=== PATIENT | male | born 1990 | race Caucasian/White ===

== ENCOUNTER 2016-10-18 11:17 | Inpatient (IN) | payer BC, OTHER ==
[2016-10-18 12:47] LABS: Hematocrit 48 % (42-52); Hemoglobin 16.3 g/dl (14.0-18.0); Mean Corpuscular HGB Conc 34 g/dl (31-36); Mean Corpuscular Hemoglobin 30 pg (27-31); Mean Corpuscular Volume 89 fL (80-94); Mean Platelet Volume 8 um3 (7.4-10.4); Red Blood Count 5.39 10^6/ul (4.0-5.4); Red Cell Distribution Width 12 % (10.5-15); White Blood Count 7.6 10^3/ul (3.5-10.8)
[2016-10-18 13:01] LABS: ALT 25 U/L (7-52); AST 19 U/L (13-39); Albumin 4.7 g/dL (3.2-5.2); Alkaline Phosphatase 92 U/L (34-104); Anion Gap 6 mmol/L (2-11); BUN/Creatinine Ratio 17.9 (8-20); Blood Urea Nitrogen 15 mg/dL (6-24); CO2 Carbon Dioxide 29 mmol/L (22-32); Calcium 9.5 mg/dL (8.6-10.3); Chloride 104 mmol/L (101-111); EGFR African American 143.2 (>60); EGFR Non-African American 111.3 (>60); Globulin 2.7 g/dL (2-4); Glucose 92 mg/dL (70-100); Potassium 3.7 mmol/L (3.5-5.0); Sodium 139 mmol/L (133-145); Total Protein 7.4 g/dL (6.4-8.9)
[2016-10-18 13:12] LABS: Acetaminophen < 15 mcg/mL; Alcohol < 10 mg/dL (<10); Salicylate < 2.50 mg/dL (<30)
[2016-10-18 13:23] LABS: TSH (Thyroid Stimulating Horm) 1.02 mcIU/mL (0.34-5.60)
[2016-10-18 13:43] LABS: Urine Bacteria Absent (Absent); Urine Bilirubin Negative (Negative); Urine Glucose Negative (Negative); Urine Nitrite Negative (Negative)
[2016-10-18] MEDS ORDERED: Haloperidol TAB* 5 MG PO PRN (15:44)
[2016-10-18] MEDS ORDERED: Magnesium Hydroxide LIQ* 30 ML UDC PO PRN (15:46)
--- NOTE | 2016-10-18 16:58 | ED ---
Fish Ruggiero Auryana, scribed for Jamin Guzmán MD on 10/18/16 at 1310 . Psychiatric Complaint - HPI Summary HPI Summary: 26 year old male presents with increased depression. Per guardians - about 1 week ago increased symptoms due to gradual reduction of medication - adverse side effects: weight gain but had been doing well on medication. He states that he has suicidal ideation- mentions taking pain killers as a plan and has now stopped eating since ceasing medication. He also states that he is hearing voices - telling him to hurt himself - intermittent for the last year - worse recently. He denies any lacerations. He denies alcohol, recreational drug use, and tobacco use - former smoker. PMHx is psychiatric issues - June 2015 hospitalization. - History Of Current Complaint Chief Complaint: [facility]entalHealth Time Seen by Provider: 10/18/16 12:50 Accompanied By: Guardians Hx Obtained From: Patient, Family/Soil Biology Teacher Onset/Duration: Gradual Onset, Lasting Weeks - 1, Still Present Timing: Constant Severity Initially: Moderate Severity Currently: Moderate Character: Depressed Aggravating Factor(s): Medication Non-compliance - recently stopped taking medication because of adverse sajan effects Associated Signs And Symptoms: Positive: Appetite Change - decreased appetite Related History: Positive For: Prior Psychiatric Issues Has Suicidal: Reports: Thoughts, With A Plan - Allergies/Home Medications Allergies/Adverse Reactions: Allergies Allergy/AdvReac Type Severity Reaction Status Date / Time No Known Allergies Allergy Verified 06/19/15 18:40 PMH/Surg Hx/FS Hx/Imm Hx Endocrine/Hematology History: Denies: Hx Diabetes Cardiovascular History: Denies: Hx Hypertension, Hx Pacemaker/ICD Sensory History: Denies: Hx Hearing Aid Psychiatric History: Reports: Hx Panic Disorder - ANXIETY, Hx Inpatient Treatment - June 2015 Denies: Hx of Violent Episodes Against Others - Surgical History Surgery Procedure, Year, and Place: RT WRIST SURGERY 2004 Infectious Disease History: No Infectious Disease History: Denies: Traveled Outside the [place] in Last 30 Days - Social History Occupation: Unemployed Lives: With Family Alcohol Use: None Alcohol Amount: "7-9 beers" but unable to specify Substance Use Type: Reports: None Substance Use Comment - Amount & Last Used: UNKNOWN Smoking Status (MU): Light Every Day Tobacco Smoker Type: Cigarettes Review of Systems Constitutional: Negative Eyes: Negative ENT: Negative Cardiovascular: Negative Respiratory: Negative Gastrointestinal: Negative Genitourinary: Negative Musculoskeletal: Negative Skin: Negative Neurological: Negative Positive: Depressed, Other - hearing voices, SI, and anorexia All Other Systems Reviewed And Are Negative: Yes Physical Exam - Summary Physical Exam Summary: The patient is well-nourished in no acute distress and in no acute pain. The skin is warm and dry and skin color reflects adequate perfusion. No lacerations on extremities. HEENT: The head is normocephalic and atraumatic. The pupils are equal and reactive. The conjunctivae are clear and without drainage. Nares are patent and without drainage. Mouth reveals moist mucous membranes and the throat is without erythema and exudate. The external ears are intact. Neck is supple with full range of motion and non-tender. There are no carotid bruits. There is no neck vein distension. Respiratory: Chest is non-tender. Lungs are clear to auscultation and breath sounds are symmetrical and equal. Cardiovascular: Hear is regular rate and rhythm. There is no murmur or rub auscultated. There is no peripheral edema and pulses are symmetrical and equal. Abdomen: The abdomen is soft and non-tender. There are normal bowel sounds heard in all four quadrants and there is no organomegaly palpated. Musculoskeletal: There is no back pain noted. Extremities are non-tender with full range of motion. There is good capillary refill. There is no peripheral edema or calf tenderness elicited. Neurological: Patient is alert and oriented to person, place and time. The patient has symmetrical motor strength in all four extremities. Cranial nerves are grossly intact. Deep tendon reflexes are symmetrical and equal in all four extremities. Psychiatric: The patient has flat affect and poor hygiene. Triage Information Reviewed: Yes Vital Signs On Initial Exam: Initial Vitals Temp Pulse Resp BP Pulse Ox 98.6 F 66 20 135/82 99 10/18/16 11:22 10/18/16 11:22 10/18/16 11:22 10/18/16 11:22 10/18/16 11:22 Vital Signs Reviewed: Yes - Yahaira Coma Scale Coma Scale Total: 15 Diagnostics - Vital Signs Vital Signs Temp Pulse Resp BP Pulse Ox 10/18/16 11:23 98.7 F 91 20 135/82 96 10/18/16 11:22 98.6 F 66 20 135/82 99 - Laboratory Lab Results: Lab Results 10/18/16 Range/Units 12:20 WBC 7.6 (3.5-10.8) 10^3/ul RBC 5.39 (4.0-5.4) 10^6/ul Hgb 16.3 (14.0-18.0) g/dl Hct 48 (42-52) % MCV 89 (80-94) fL MCH 30 (27-31) pg MCHC 34 (31-36) g/dl RDW 12 (10.5-15) % Plt Count 297 (150-450) 10^3/ul MPV 8 (7.4-10.4) um3 Neut % (Auto) 57.5 (38-83) % Lymph % (Auto) 32.4 (25-47) % [place] % (Auto) 8.3 (1-9) % Eos % (Auto) 1.4 (0-6) % Baso % (Auto) 0.4 (0-2) % Absolute Neuts (auto) 4.4 (1.5-7.7) 10^3/ul Absolute Lymphs (auto) 2.5 (1.0-4.8) 10^3/ul Absolute Monos (auto) 0.6 (0-0.8) 10^3/ul Absolute Eos (auto) 0.1 (0-0.6) 10^3/ul Absolute Basos (auto) 0 (0-0.2) 10^3/ul Absolute Nucleated RBC 0.01 10^3/ul Nucleated RBC % 0.1 Result Diagrams: 10/18/16 12:20 10/18/16 12:20 Lab Statement: Any lab studies that have been ordered have been reviewed, and results considered in the medical decision making process. Course/Dx - Course Assessment/Plan: 26 year old male presents with increase depression starting about 1 week ago after gradually ceasing to take his medication. Guardians state that he was experiencing adverse symptoms -weight gain and thus patient wanted to discontinue medication. He is also hearing voices - increased now, and has SI. No tobacco, alcohol, or drug use - former smoker. Prior psychiatric hospitalization in June 2015. Labs ordered - unremarkable. Normal Labs. Normal Urine. Patient is medically clear 13:26. MHE- result: voluntary admission. Diagnosis of schizophrenia. - Differential Dx/Clinical Impression Differential Diagnosis/HQI/PQRI: Positive: Acute Psychosis, Bipolar Disorder, Depression Provider Diagnosis: Schizophrenia, Non compliance with medical treatment Discharge - Discharge Plan Condition: Stable Disposition: PSYCHIATRIC FACILITY-[facility] [place] Referrals: Non Staff,Doctor [Primary Care Provider] - The documentation as recorded by the Fish rendon Auryana accurately reflects the service I personally performed and the decisions made by me, Jamin Guzmán MD.
[2016-10-18] MEDS ORDERED: risperiDONE TAB* 2 MG PO SCH (21:00)
[2016-10-19] MEDS ORDERED: Paliperidone TAB* 6 MG PO ONE (16:11)
[2016-10-19] MEDS: Paliperidone TAB* 6 MG PO SCH (18:09)
[2016-10-19] MEDS: hydrOXYzine HCL TAB* 50 MG PO PRN (22:42)
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
[2016-10-20] MEDS: Paliperidone TAB* 6 MG PO SCH (09:37)
[2016-10-21] MEDS: Paliperidone TAB* 6 MG PO SCH (09:08)
--- NOTE | 2016-10-21 11:02 | PN ---
MHU: Group Therapy Note - Service Type Service Type: [id number] Group Psychotherapy - Cognitive Behavioral Group Therapy ( CBT):Patient was attentive and participatory in CBT programming this morning, and remained in good behavioral control. Patient expressed positive insights regarding relevant treatment interventions and goals.
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
[2016-10-22] MEDS: Paliperidone TAB* 6 MG PO SCH (10:14)
--- NOTE | 2016-10-22 11:24 | PN ---
MHU: Group Therapy Note - Service Type Service Type: [id number] Group Psychotherapy - Cognitive Behavioral Group Therapy ( CBT):Patient attended CBT programming this morning and presented with flat affect that did not vary with discussion. Although responsive to direct prompts to respond to questions, patient did not engage in spontaneous conversation.
[2016-10-22] MEDS ORDERED: Nicotine Inhaler* 10 MG AMP INH PRN (12:22)
[2016-10-22] MEDS ORDERED: Mouth Piece, Nicotine* 1 EACH CARTRIDGE INH ONE (13:00)
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
[2016-10-22] MEDS ORDERED: Paliperidone SUSTENNA* 234 MG/1.5 ML IM ONE (14:52)
[2016-10-23] MEDS: Paliperidone TAB* 6 MG PO SCH (10:09)
--- NOTE | 2016-10-23 11:26 | PN ---
MHU: Group Therapy Note - Service Type Service Type: [id number] Group Psychotherapy - Cognitive Behavioral Group Therapy ( CBT):Patient was attentive and participatory in CBT programming this morning, and remained in good behavioral control. Patient expressed positive insights regarding relevant treatment interventions and goals.
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
[2016-10-23] MEDS: hydrOXYzine HCL TAB* 50 MG PO PRN (20:33)
[2016-10-23] MEDS: Propranolol TAB* 10 MG PO SCH (20:33)
[2016-10-24] MEDS: Acetaminophen TAB* 325 MG PO PRN (06:53)
[2016-10-24] MEDS: Propranolol TAB* 10 MG PO SCH ×2 (09:40→21:33)
[2016-10-24] MEDS: Paliperidone TAB* 6 MG PO SCH (09:40)
--- NOTE | 2016-10-24 11:12 | PN ---
[facility]: Group Therapy Note - Service Type Service Type: 63832 Group Psychotherapy - Cognitive Behavioral Group Therapy ( CBT):Patient attended CBT programming this morning and presented with flat affect that did not vary with discussion. Although responsive to direct prompts to respond to questions, patient did not engage in spontaneous conversation. Isaak's comments in group this morning were disorganized and off topic. When asked by a peer about a cold pack on his wrist he described breaking it in third grade while sliding down a railing.
[2016-10-24] MEDS: hydrOXYzine HCL TAB* 50 MG PO PRN (13:22)
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
[2016-10-25] MEDS: Paliperidone TAB* 6 MG PO SCH (08:38)
[2016-10-25] MEDS: Propranolol TAB* 10 MG PO SCH ×2 (08:38→21:55)
[2016-10-25] MEDS: hydrOXYzine HCL TAB* 50 MG PO PRN (13:07)
--- NOTE | 2016-10-25 15:47 | PN ---
Subjective - Subjective Service Type: 12285 Hosp care 15 min low complexity Subjective: Beto had no spontaneous comments. He noted "pins and needles" sensation all over his body, which Atarax addressed. He denied problems with Invega. He denied current hallucinations, distress, concerns, needs, or conflicts with people. He said he is fine being hospitalized. Objective - Appearance Appearance: Well Developed/Nourished Hygiene: Normal Grooming: Disheveled - Behavior Psychomotor Activities: Abnormal-Decreased - Attitude and Relatedness Attitude and Relatedness: Psychotically Related Eye Contact: Good - Speech Quality: Unpressured Latencies: Long Quantity: Terse - Mood Patient's Decription of Mood: "Okay" - Affect Observed Affect: Unvariable Affect Consistent with: Euthymia - Thought Process Patient's Thought Process: Impoverished Thought Content: No Passive Wish, No Suicidal Planning, No Homicidal Ideation, No Paranoid Ideation - Sensorium Experiencing Hallucinations: No, Sensorium is Clear - Level of Consciousness Level of Consciousness: Alert - Impulse Control Impulse Control: Intact - Insight and Judgement Insight and Judgement: Poor Assessment - Assessment Merits Inpatient Hospitalization: For Stabilization, To Initiate Treatment, For Ongoing Evaluation Inpatient DSM-IV Dx: Schizophrenia Clinical Impression: 26 y/o male with a history of psychosis, Schizophrenia diagnosis, prior psychiatric hospitalization and aggression. He was admitted due to concern over decompensated psychotic symptoms (hallucinations) and agitation, in the setting of months of medication nonadherence. Stable behaviorally here. Safe on checks, adherent with routines. Appears to have negative symptoms of psychosis currently. Medication mgt. is a retrial of paliperidone. Plan - Plan Treatment Plan: Name: BETO CAPELLAN Birthdate: 1990 [id number] Continued Medication Management: Start Medication Medications: Current Medications Acetaminophen (Tylenol Tab*) 650 mg PO Q6H PRN PRN Reason: PAIN Last Admin: 10/24/16 06:53 Dose: 650 mg Hydroxyzine HCl (Atarax Tab*) 50 mg PO Q6H PRN PRN Reason: AGITATION/ANXIETY Last Admin: 10/25/16 13:07 Dose: 50 mg Magnesium Hydroxide (Milk Of Magnesia Liq*) 30 ml PO Q6H PRN PRN Reason: CONSTIPATION Nicotine (Nicotine Inhaler*) 10 mg INH Q2H PRN PRN Reason: CRAVING Last Admin: 10/22/16 16:15 Dose: 10 mg Paliperidone (Invega Tab*) 6 mg PO DAILY [facility] Last Admin: 10/25/16 08:38 Dose: 6 mg Propranolol HCl (Inderal Tab*) 10 mg PO BID [facility] Last Admin: 10/25/16 08:38 Dose: 10 mg - Discharge Plan Discharge Plan: Outpatient Follow Up
[2016-10-26] MEDS: Propranolol TAB* 10 MG PO SCH ×2 (09:17→21:32)
[2016-10-26] MEDS: Paliperidone TAB* 6 MG PO SCH (09:17)
[2016-10-26] MEDS: Acetaminophen TAB* 325 MG PO PRN (09:18)
[2016-10-26] MEDS: hydrOXYzine HCL TAB* 50 MG PO PRN (15:34)
[2016-10-27] MEDS: Propranolol TAB* 10 MG PO SCH ×2 (08:53→20:35)
[2016-10-27] MEDS: Paliperidone TAB* 6 MG PO SCH (08:53)
[2016-10-28] MEDS: Paliperidone TAB* 6 MG PO SCH (08:16)
[2016-10-28] MEDS: Propranolol TAB* 10 MG PO SCH (08:16)
[2016-10-28 08:24] VITALS: BP 130/75
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
[2016-10-28] MEDS ORDERED: Paliperidone SUSTENNA* 156 MG/1 ML IM ONE (11:00)
== END 2016-10-28 12:00 | disposition home or self-care (01) | DRG 750 ==
LOC: ED 11:17 → BSU 18:34
PROVIDERS: ADMIT Psychiatry & Neurology Psychiatry; ATTEND Psychiatry & Neurology Psychiatry
PROC: GZHZZZZ Group Psychotherapy (ICD-10-PCS; principal; 2016-10-21)
DX: F20.9 Schizophrenia, unspecified (principal); Z91.14 Patient's other noncompliance with medication regimen; F41.0 Panic disorder [episodic paroxysmal anxiety]; R40.2412 Glasgow coma scale score 13-15, at arrival to emergency department; Z56.0 Unemployment, unspecified; Z87.891 Personal history of nicotine dependence
CPT/HCPCS: 36415; 80053; 80320; 80329; 81003; 81015; 84443; 85025; 87086; 90853; 99222; 99231; 99233; 99238; A9270-GY; G0480; J2426

== ENCOUNTER 2020-03-22 14:32 | Inpatient (IN) ==
[2020-03-22 16:49] LABS: ABS Lymphocytes 1.7 10^3/ul (1.0-4.8); ABS Monocytes 0.9 10^3/ul (0-0.8); ABS Neutrophils 12.9 10^3/ul (1.5-7.7); Eosinophil % 0.1 %; Hematocrit 48 % (42-52); Hemoglobin 16.4 g/dL (14.0-18.0); Lymphocyte % 10.9 %; Mean Corpuscular HGB Conc 34 g/dL (31-36); Mean Corpuscular Hemoglobin 30 pg (27-31); Mean Corpuscular Volume 88 fL (80-94); Mean Platelet Volume 7.3 fL (7.4-10.4); Nucleated Red Blood Cells % 0.1; Platelet Count 359 10^3/uL (150-450); Red Blood Count 5.45 10^6 /uL (4.18-5.48); Red Cell Distribution Width 12 % (10-15); White Blood Count 15.6 10^3/uL (3.5-10.8)
[2020-03-22 17:19] LABS: ALT 78 U/L (7-52); AST 47 U/L (13-39); Albumin/Globulin Ratio 1.9 (1-3); Alkaline Phosphatase 90 U/L (34-104); Anion Gap 10 mmol/L (2-11); Blood Urea Nitrogen 20 mg/dL (6-24); CO2 Carbon Dioxide 24 mmol/L (22-32); Calcium 9.4 mg/dL (8.6-10.3); Chloride 105 mmol/L (101-111); EGFR African American 126.4 (>60); EGFR Non-African American 104.5 (>60); Globulin 2.7 g/dL (2-4); Glucose 98 mg/dL (70-100); Potassium 3.6 mmol/L (3.5-5.0); Sodium 139 mmol/L (135-145); Total Protein 7.7 g/dL (6.4-8.9)
[2020-03-22 17:31] LABS: Acetaminophen < 15 mcg/mL; Alcohol, S < 10 mg/dL (<10); Salicylate < 2.50 mg/dL (<30)
[2020-03-22 17:39] LABS: TSH Ultra Thyroid Stim Horm 0.94 mcIU/mL (0.34-5.60)
[2020-03-23 03:30] LABS: Urine Appearance Cloudy; Urine Bilirubin Negative (Negative); Urine Blood Negative (Negative); Urine Color Amber; Urine Glucose Negative (Negative); Urine Ketones 1+ (Negative); Urine Nitrite Negative (Negative); Urine Protein 1+(30 mg/dL) (Negative); Urine Specific Gravity 1.031 (1.010-1.030); Urine Urobilinogen Negative (Negative)
[2020-03-23 03:32] LABS: Urine Bacteria 1+ (Absent); Urine Red Blood Cell 1+(3-5/hpf) (Absent); Urine White Blood Cell Trace(0-5/hpf) (Absent)
[2020-03-23 03:55] LABS: Urine Benzodiazepine Screen None Detected (None Detect); Urine Cannabinoids Screen None Detected (None Detect); Urine Opiates Screen None Detected (None Detect)
[2020-03-23] MEDS ORDERED: Haloperidol 5 mg/ml SDV IV/IM 5 MG/ML AMP IM ONE (04:04)
[2020-03-23] MEDS ORDERED: LORazepam 2 mg VIAL 1 ml IM ONE (04:04)
[2020-03-23] MEDS ORDERED: diPHENhydraMINE IV 50 MG/ML 1 ml VIAL (BENADRYL) IM ONE (04:04)
[2020-03-23] MEDS ORDERED: LORazepam 2 mg VIAL 1 ml ONE (04:05)
[2020-03-23] MEDS ORDERED: Nicotine GUM 2MG FRUIT FLAVOR PO PRN (09:00)
[2020-03-23] MEDS: Vitamin THERAPEUTIC TAB PO SCH (10:39)
[2020-03-23] MEDS ORDERED: Nicotine Lozenge mini 4 MG LOZNG.MINI MT PRN (16:18)
[2020-03-24] MEDS: Vitamin THERAPEUTIC TAB PO SCH (10:13)
[2020-03-25 08:45] LABS: HDL Cholesterol 22.5 mg/dL
[2020-03-25] MEDS: Vitamin THERAPEUTIC TAB PO SCH (09:19)
[2020-03-26] MEDS: Vitamin THERAPEUTIC TAB PO SCH (09:50)
[2020-03-27] MEDS: Vitamin THERAPEUTIC TAB PO SCH (10:05)
[2020-03-28] MEDS: Vitamin THERAPEUTIC TAB PO SCH (08:44)
[2020-03-28] MEDS: Cholecalciferol (VIT D3) 1,000 unit TAB PO SCH (14:28)
[2020-03-29] MEDS: Vitamin THERAPEUTIC TAB PO SCH (08:06)
[2020-03-29] MEDS: Cholecalciferol (VIT D3) 1,000 unit TAB PO SCH (08:06)
[2020-03-30] MEDS: Al Hydrox/Mg Hydrox/Simet LIQ 30 ML UDC PO PRN (06:09)
[2020-03-30] MEDS: Cholecalciferol (VIT D3) 1,000 unit TAB PO SCH (08:56)
[2020-03-30] MEDS: Vitamin THERAPEUTIC TAB PO SCH (08:57)
[2020-03-31] MEDS: Vitamin THERAPEUTIC TAB PO SCH (08:28)
[2020-03-31] MEDS: Cholecalciferol (VIT D3) 1,000 unit TAB PO SCH (08:28)
[2020-04-01] MEDS: Vitamin THERAPEUTIC TAB PO SCH (07:28)
[2020-04-01] MEDS: Cholecalciferol (VIT D3) 1,000 unit TAB PO SCH (07:28)
[2020-04-02] MEDS: Vitamin THERAPEUTIC TAB PO SCH (08:04)
[2020-04-02] MEDS: Cholecalciferol (VIT D3) 1,000 unit TAB PO SCH (08:04)
[2020-04-02] MEDS: Al Hydrox/Mg Hydrox/Simet LIQ 30 ML UDC PO PRN (10:50)
[2020-04-03] MEDS: Vitamin THERAPEUTIC TAB PO SCH (08:20)
[2020-04-03] MEDS: Cholecalciferol (VIT D3) 1,000 unit TAB PO SCH (08:20)
[2020-04-03] MEDS ORDERED: Influenza VAC *QUAD* 2020-21* 0.5 ML SYRINGE IM ONE (09:00)
[2020-04-04 07:56] VITALS: BP 129/61
[2020-04-04] MEDS: Cholecalciferol (VIT D3) 1,000 unit TAB PO SCH (08:52)
[2020-04-04] MEDS: Vitamin THERAPEUTIC TAB PO SCH (08:52)
== END 2020-04-04 12:05 | disposition home or self-care (01) | DRG 750 ==
LOC: ED 14:32 → BSU 03-23 00:30
PROVIDERS: ADMIT Psychiatry & Neurology Psychiatry; ATTEND Psychiatry & Neurology Psychiatry